=== PATIENT | male | born 1990 | race Caucasian/White ===

== ENCOUNTER 2021-10-25 10:26 | Inpatient (IN) | payer MEDICAID, SELFPAY ==
[2021-10-25 10:33] VITALS: BMI 20.7
[2021-10-25 11:05] LABS: Basophils % 0.7 %; Eosinophils # 0.1 10^3/uL (0.0-0.8); Hemoglobin 15.5 g/dL (11.7-16.6); Lymphocytes # 0.8 10^3/uL (0.8-4.8); Lymphocytes % 12.9 %; Mean Corpuscular HGB Conc 33.7 g/dL (30.0-36.0); Mean Corpuscular Hemoglobin 31.6 pg (28.0-34.0); Mean Corpuscular Volume 93.9 fl (80-94); Mean Platelet Volume 9.4 fL (7.4-10.4); Monocytes # 0.8 10^3/uL (0.2-0.9); Monocytes % 13.2 %; Neutrophils # 4.36 10^3/uL (1.8-7.7); Nucleated Red Blood Cells % 0 %; Platelet Count 206 10^3/cmm (130-400); Red Cell Distribution Width 13.2 % (12.1-15.1); White Blood Count 6.1 10^3/uL (4.0-10.0)
--- NOTE | 2021-10-25 11:25 | W.ED.PSYCHS ---
HPI - Psych General: Chief Complaint: Psychiatric Symptoms Stated Complaint: MHE Time Seen by Provider: 10/25/21 10:49 Source: patient Mode of arrival: ambulatory Limitations: no limitations History of Present Illness: 31-year-old male presents emergency room with suicidal ideation. He states he had suicidal thoughts for the last several days or even weeks. Although the patient does not express a formulated plan at all. He has a custody issue with the mother of his children at his gotten up to this point. He has not been able to see his kids for some time. No previous mental health history is not on any medications no previous hospitalizations for suicidal ideations. MD complaint: suicidal ideation and feels depressed Onset (ago): day(s) Duration: constant Relieving factors: none Exacerbating factors: other (Social situation) Context: significant life stressor Associated psychiatric symptoms: depression and suicidal ideation Associated symptoms: Reports depression and suicidal ideation; Deny auditory hallucinations, visual hallucinations, delusions, homicidal ideation or racing thoughts Treatments prior to arrival: none If self harm: admits thoughts of self harm Review of Systems Const: Denies: fever(s), chills, body aches, change in appetite, fatigue or malaise ENMT: Denies: throat pain, ear or mastoid pain, nasal discharge or nasal congestion Card: Denies: chest pain, edema, dyspnea on exertion or orthopnea Resp: Denies: dyspnea, productive cough or non-productive cough GI: Denies: abdominal pain, nausea, vomiting, hematemesis, coffee ground emesis, diarrhea, constipation, bloating, hematochezia or melena : Denies: flank pain, difficulty urinating, dysuria, urinary frequency or urinary urgency Skin/Breast: Denies: rash or pruritus Psych: Reports: depression and suicidal ideation; Denies: visual hallucinations, auditory hallucinations or homicidal ideation [facility] PFSH: Medical History No significant past medical history Surgical History No significant past surgical history Physical Exam Const: GENERAL APPEARANCE: cooperative and comfortable ORIENTATION/CONSCIOUSNESS: Yes awake, Yes oriented to person, Yes oriented to place and Yes oriented to time HENMT: COMMON NORMALS: normocephalic, atraumatic and hearing grossly normal bilaterally HEAD & SCALP: normocephalic and atraumatic Neck/C-Spine: COMMON NORMALS: no JVD Resp: COMMON NORMALS: normal respiratory effort, No retractions, No use of accessory muscles and clear to auscultation bilaterally AUSCULTATION: clear to auscultation bilaterally Cardio: COMMON NORMALS: no JVD, regular rate, regular rhythm and No murmurs present (Cardio) RATE: regular rate RHYTHM: regular rhythm GI: COMMON NORMALS: Soft to palpation and No hepatosplenomegaly present AUSCULTATION: Yes normoactive bowel sounds PALPATION: Yes Soft to palpation, No Tenderness to palpation present (GI), No Guarding due to palpation present (GI) and Yes No hepatosplenomegaly present Extremity: COMMON NORMALS: normal to inspection, capillary refill normal, no clubbing, cyanosis or edema, no calf tenderness and no pedal edema Neuro: SENSORIUM/ORIENTATION: Yes oriented to person, Yes oriented to place and Yes oriented to time Psych: THOUGHT CONTENT: No delusions Skin: COMMON NORMALS: no rashes or lesions noted GENERAL SKIN EXAM: no rashes or lesions noted Course Vital Signs: Vital signs: Vital Signs Temperature 98.3 F 10/29/21 10:56 Pulse Rate 83 10/29/21 10:56 Respiratory Rate 16 10/29/21 10:56 Blood Pressure 104/70 10/29/21 10:56 Pulse Oximetry 99 10/29/21 10:56 [facility] - Psych Medical Decision Making Patient has a very flat affect and concerned about his dwelling for the last several days if not more on suicidal ideation. He is not able to express a plan became very angry when we advised him that he would have to be admitted because of the suicidal ideation. We were able to redirect him he was familiar with one of our security guards who was able to calm him down and get him to agree. He does not have any hallucinations. Discussed with psychiatry will admit Medical Records I reviewed the patient's medical records. Lab Data I reviewed the patient's lab results. : 10/25/21 11:00 10/25/21 11:00 Laboratory Results WBC 6.1 10^3/uL (4.0-10.0) 10/25/21 11:00 RBC 4.90 10^6/uL (4.1-5.3) 10/25/21 11:00 Hgb 15.5 g/dL (11.7-16.6) 10/25/21 11:00 Hct 46.0 % (42.0-52.0) 10/25/21 11:00 MCV 93.9 fl (80-94) 10/25/21 11:00 MCH 31.6 pg (28.0-34.0) 10/25/21 11:00 MCHC 33.7 g/dL (30.0-36.0) 10/25/21 11:00 RDW 13.2 % (12.1-15.1) 10/25/21 11:00 Plt Count 206 10^3/cmm (130-400) 10/25/21 11:00 MPV 9.4 fL (7.4-10.4) 10/25/21 11:00 Neut % (Auto) 71.0 % 10/25/21 11:00 Lymph % (Auto) 12.9 % 10/25/21 11:00 [place] % (Auto) 13.2 % 10/25/21 11:00 Eos % (Auto) 2.0 % 10/25/21 11:00 Baso % (Auto) 0.7 % 10/25/21 11:00 Neut # (Auto) 4.36 10^3/uL (1.8-7.7) 10/25/21 11:00 Lymph # (Auto) 0.8 10^3/uL (0.8-4.8) 10/25/21 11:00 [place] # (Auto) 0.8 10^3/uL (0.2-0.9) 10/25/21 11:00 Eos # (Auto) 0.1 10^3/uL (0.0-0.8) 10/25/21 11:00 Baso # (Auto) 0.0 10^3/uL (0.0-0.1) 10/25/21 11:00 Nucleated RBC % (auto) 0 % 10/25/21 11:00 Nucleated RBCs # 0.0 /100WBC 10/25/21 11:00 Sodium 138 mmol/L (136-145) 10/25/21 11:00 Potassium 4.0 mmol/L (3.5-5.1) 10/25/21 11:00 Chloride 102 mmol/L (98-107) 10/25/21 11:00 Carbon Dioxide 28 mmol/L (22-29) 10/25/21 11:00 Anion Gap 12.0 (5-19) 10/25/21 11:00 BUN 10 mg/dL (6-20) 10/25/21 11:00 Creatinine 0.8 mg/dL (0.7-1.2) 10/25/21 11:00 GFR Calculation 113.5 mL/min (90-130) 10/25/21 11:00 Glucose 91 mg/dL (65-115) 10/25/21 11:00 Calculated Osmolality 285 mOsm/kg (285-295) 10/25/21 11:00 Calcium 8.6 mg/dL (8.5-10.5) 10/25/21 11:00 Total Bilirubin 0.7 mg/dL (0.15-1.2) 10/25/21 11:00 AST 21 U/L (0-40) 10/25/21 11:00 ALT 24 U/L (0-41) 10/25/21 11:00 Alkaline Phosphatase 48 IU/L (40-130) 10/25/21 11:00 Total Protein 6.8 g/dL (6.6-8.7) 10/25/21 11:00 Albumin 4.3 g/dL (3.5-5.2) 10/25/21 11:00 Globulin 2.5 g/dL (1.3-4.6) 10/25/21 11:00 Salicylates < 0.3 mg/dL (3-10) L 10/25/21 11:00 Acetaminophen < 5.0 ug/mL (10-30) L 10/25/21 11:00 Discharge Plan Discharge Patient Disposition: Admitted As Inpatient Admit Provider: Rogerio Quinn Clinical Impression: Suicidal ideation, Major depressive disorder, recurrent, severe w/o psychotic behavior Condition: Stable Discharge Orders: Discharge Order (Routine); Ordered 10/29/21 Ordered By: Justyn Stone Discharge Diet: Regular Discharge Activity: Resume usual activity Coding Level of Care Code ED Hand Cementer for Chg Fwd Exam Comprehensive
[2021-10-25 11:33] LABS: Alanine Aminotransferase 24 U/L (0-41); Albumin Level 4.3 g/dL (3.5-5.2); Alkaline Phosphatase 48 IU/L (40-130); Aspartate Amino Transferase 21 U/L (0-40); Blood Urea Nitrogen 10 mg/dL (6-20); Calcium 8.6 mg/dL (8.5-10.5); Carbon Dioxide 28 mmol/L (22-29); Chloride 102 mmol/L (98-107); Globulin 2.5 g/dL (1.3-4.6); Glomerular Filtration Rate 113.5 mL/min (90-130); Glucose 91 mg/dL (65-115); Osmolality Calculated 285 mOsm/kg (285-295); Sodium 138 mmol/L (136-145); Total Bilirubin 0.7 mg/dL (0.15-1.2); Total Protein 6.8 g/dL (6.6-8.7)
[2021-10-25 11:39] LABS: Acetaminophen < 5.0 ug/mL (10-30); Salicylate < 0.3 mg/dL (3-10)
[2021-10-25 13:09] VITALS: BP 116/79; PULSE 70; O2SAT 96
[2021-10-25] MEDS: LORazepam 2 mg Tablet PO (13:11)
[2021-10-25 14:25] VITALS: BP 110/70; PULSE 86; RESP 16; TEMP 36.9; O2SAT 97
--- NOTE | 2021-10-25 15:01 | PC.ADMIT ---
[address] Admission Note: The patient,El Dove,31 y/o, was given written information regarding hospital policies, unit procedures and contact persons. Patient's smoking status: . Vital Signs - 8 hr 10/25/21 13:09 10/25/21 14:25 Temperature 98.4 F Pulse Rate 70 86 Respiratory Rate 16 Blood Pressure 116/79 110/70 Pulse Oximetry 96 97 PT ADMITTED FROM ER AT 1426 VIA WHEELCHAIR AND SECURITY STAFF. PT IS ON A 96 HOUR HOLD THAT ENDS 10/29/21 AT 1426. PT A&O TIMES 3. PT STATES HE IS HERE DUE TO HAVING BAD THOUGHTS ABOUT WANTING TO HURT MYSELF OR OTHERS. PT TAKES NO HOME MEDICATIONS. HAS NO KNOWN DRUG ALLERGIES. PT REPORTS HE DID SEE A THERAPIST A FEW TIMES WHILE TRYING TO GET HIS SON OUT OUT [facility] CUSTODY. PT HAS HAD NO PSYCH ADMISSIONS. STATES HE DOES NOT USE DRUGS BUT DRINKS OCCASIONALLY. PT DOES REPORT HIS LAST DRINK WAS A FEW DAYS AGO AND HE SMOKED WEED THEN WELL. PT ORIENTATED TO UNIT. ALL QUESTIONS ANSWERED AND SUPPORT VOICED.
--- NOTE | 2021-10-25 17:28 | W.PM.NPUH&PS ---
Providers/Chief Complaint Admitting Physician: Rogerio Quinn MD Primary Care Provider: Rodolfo Glasgow MD Chief Complaint: suicidal ideation HPI NPU History of Present Illness El Dove is a 31 year old male admitted from ER to NPU with suicidal ideation described for weeks with increasing intensity. He reports that he has been depressed than a month. He reports sleep continuity disruption along with difficulties falling asleep. He reports that he has had recurring thoughts of being but did not elicit any particular plan. He reports that he has been preoccupied by thoughts of dying. He reports that this has been worse due to his inability to see his 4 children for the last several months because of an ongoing custody issue with his children's mother. He reports having extreme financial distress and states that he has been overwhelmed by having to began this fermin with his children's mother over being able to visit. He reports that he has felt exhausted all of the time. He reports diminished concentration. He did not endorse any manic symptoms. Nor did he endorse any psychotic symptoms. He reports no prior history of suicide attempts. He does report a past history of a depressed episode that resolved on its own in the distant past. He reportedly reports a motivation and anergia. He reports that his depression has been worse as the day progresses. He reports he wished to get some help before he did something unfortunate. Past psychiatric History: He has reported a past history of a trial of Prozac for depression but could not specify how long ago he had taken it. He reports no previous history of inpatient hospitalization. He reports occasional use of alcohol and marijuana but reports no significant history of excess use of either substance. There is no history of cocaine use methamphetamine use or opiate use reported. Medical history: none Surgical Hx: none Allergies: nkda Social Hx: He was raised in [place] by both his biological parents. He reports having graduated from high school here and has worked in construction. He reports that he has 5 biological children and one of his children lives with him along with his sister. He did not endorse any history of sexual physical or emotional abuse. He reports a history of financial stressors. He reports that he has no contact with his biological parents currently. Developmental history is considered normal and noncontributory. He has no legal history. Meds NPU Home Medications Medication Instructions Recorded Confirmed Last Taken Type No Known Home Medications 10/25/21 10/25/21 Unknown History Allergies Allergy/AdvReac Type Severity Reaction Status Date / Time No Known Allergies Allergy Verified 10/25/21 13:18 PFSH NPU PFSH: Medical History (Updated 10/25/21 @ 19:37 by Rogerio Quinn MD) No significant past medical history Surgical History (Updated 10/25/21 @ 11:27 by Juan Wilkins DO) No significant past surgical history Mental Status Exam MSE Comments: He is a casually dressed white male who appeared his stated age. He Significant psychomotor retardation and at times appeared almost tearful on interview. His mood was described as depressed. His affect was restricted in range and mood congruent there was none there is no evidence of any abnormal involuntary motor movements tics tremors or tremors appreciated. His thought process was linear and logical and goal-directed his thought content endorsed suicidal ideation with no homicidal ideation he was alert and oriented to person place and time is recent and remote memory appear grossly intact his insight appeared limited at this time his judgment was poor there is no clear evidence of any delusional thinking denies any auditory or visual loose Nations. Vitals/I&O/Wt Last Vital Signs Temp 98.4 F 10/25/21 14:25 Pulse 86 10/25/21 14:25 Resp 16 10/25/21 14:25 BP 110/70 10/25/21 14:25 Pulse Ox 97 10/25/21 14:25 Weight last 48 hrs Weight 63.503 kg Data NPU : 10/25/21 11:00 10/25/21 11:00 A&P Assessment and plan (1) Major depressive disorder, recurrent, severe w/o psychotic behavior: Status: Acute (2) Suicidal ideation: Status: Acute Plan Who is a 31-year-old white male with no previous history history of inpatient hospitalizations who arrives to the MPU today with active suicidal ideation and severe depression over the last month. Acute precipitants include increased stress with lack of contact with his 4 children over the last month. Plan #1 discussed with patient that a trial of a different antidepressant and will initiate Wellbutrin XL 150 mg in the morning to therapeutic observation 15-minute checks #3 engage patient in individual milieu and group therapy Involuntary Hold Information 96 Hour Hold: 96 Hour Involuntary Admission: Yes 96 Hour Hold Ending Date: 10/29/21 96 Hour Hold Ending Time: 14:26 Attestations NPU Medical Necessity Statement*: Medical necessity statement: Patient will continue to require inpatient hospitalization with patient expected to be here for at least 2 midnights with expected length of stay 3 to 7 days. Coding Level of Care Code New Pt Acute Telegraph Operator for Debbieg Fwd Patient Type New History Problem Focused Exam Problem Focused Medical Decision Making Straight Forward Diagnoses Major depressive disorder, recurrent, severe w/o psychotic behavior F33.2 Suicidal ideation R45.851
[2021-10-25 20:17] VITALS: BP 109/71; PULSE 83; RESP 18; O2SAT 98
[2021-10-25] MEDS: trazodone 50 mg Tablet PO (21:03)
[2021-10-26 06:00] VITALS: BP 91/57; PULSE 64; RESP 16; TEMP 36.6; O2SAT 97
[2021-10-26] MEDS: buPROPion XL (24 HR) 150 mg Tablet PO (09:24)
--- NOTE | 2021-10-26 11:07 | PC.NURSE ---
IN BED RESTING. DENIES SI/HI AND AVH AT THIS TIME. PT APPEARS DEPRESSED AND MILDLY ANXIOUS BUT DECLINES ANXIETY MEDS AT THIS TIME. SUPPORT VOCIED.
[2021-10-26 14:00] VITALS: BP 98/68; PULSE 81; RESP 20; TEMP 36.9; O2SAT 98
--- NOTE | 2021-10-26 14:23 | P.NPUPN_ITS ---
Subjective NPU Subjective: El is a 31-year-old white male with no previous psychiatric hospitalization admitted with severe depression and intense suicidal thoughts with no active plan. The patient had been compliant on the milieu. He had reported some difficulties with falling asleep last night. He reported no side effects from his first dose of Wellbutrin XL this morning. He reports that he continues to be stressed and is repeatedly thinking about his children who he has not seen in months. The patient denies any feelings of worthlessness but does report some feelings of hopelessness. He reports diminished appetite and continues to report some decreased energy and struggles with getting out of bed in the morning. Mental Status Exam MSE Comments: He is a casually dressed white male who appeared his stated age.? He continued to have considerable psychomotor retardation. His mood was described as depressed.? His affect remained flat. There was no evidence of any abnormal involuntary motor movements tics , or tremors appreciated.? His thought process was linear and logical with repeated themes of loss of contact with children. His thought content endorsed suicidal ideation with no homicidal ideation. he was alert and oriented to person place and time. His recent and remote memory appear grossly intact. His insight appeared limited at this time. His judgment was poor. There is no clear evidence of any delusional thinking. He denies any auditory or visual hallucinations. Vitals/I&O/Wt Last Vital Signs Temp 98.5 F 10/26/21 14:00 Pulse 81 10/26/21 14:00 Resp 20 H 10/26/21 14:00 BP 98/68 10/26/21 14:00 Pulse Ox 98 10/26/21 14:00 Weight last 48 hrs Weight 63.503 kg Data NPU : 10/25/21 11:00 10/25/21 11:00 A&P Assessment and plan (1) Suicidal ideation: Status: Acute (2) Major depressive disorder, recurrent, severe w/o psychotic behavior: Status: Acute Plan Who is a 31-year-old white male with no previous history of inpatient hosp italizations who arrives to the NPU with active suicidal ideation and severe depression over the last month.? Acute precipitants include increased stress with lack of contact with his 4 children over the last month. 1) continue wellbutrin xl 150mg with plan for increase in next 2-3 days 2) individual/milieu and group therapy 3) To-15 minute checks. Involuntary Hold Information 96 Hour Hold: 96 Hour Involuntary Admission: Yes 96 Hour Hold Ending Date: 10/29/21 96 Hour Hold Ending Time: 14:26 Attestations NPU Medical Necessity Statement*: Medical necessity statement: Patient will continue to require inpatient hospitalization with patient expected to be here for at least 2 midnights with expected length of stay 3 to 7 days. Coding Level of Care Code Established Pt Acute Client Technical Support Associate for Ruba Winkler Patient Type Established History Problem Focused Exam Problem Focused Medical Decision Making Straight Forward Diagnoses Suicidal ideation R45.851 Major depressive disorder, recurrent, severe w/o psychotic behavior F33.2
[2021-10-26] MEDS: hyDROXYzine 25 mg Capsule 50 MG PO (18:33)
[2021-10-26 19:52] VITALS: BP 119/80; PULSE 79; RESP 16; TEMP 36.9; O2SAT 94
[2021-10-26] MEDS: trazodone 50 mg Tablet PO (20:49)
--- NOTE | 2021-10-26 22:24 | PC.NURSE ---
PRN MED PT GIVEN 50MG TRAZADONE FOR INSOMNIA, WILL CONTINUE TO MONITOR.
[2021-10-27 06:00] VITALS: BP 107/72; PULSE 81; RESP 16; TEMP 36.8; O2SAT 98
[2021-10-27] MEDS: buPROPion XL (24 HR) 150 mg Tablet PO (08:56)
--- NOTE | 2021-10-27 12:22 | P.NPUPN_ITS ---
Subjective NPU Subjective: El is a 31-year-old white male with no previous psychiatric hospitalization admitted with severe depression and intense suicidal thoughts with no active plan.? The patient had been compliant on the milieu.?He reports feeling more motivated to get better. No side effects from medication. He reports no feelings of worthlessness. He reports some improved energy but still complains of feeling tired during the day. He reports no active thoughts of suicide today. ? Mental Status Exam MSE Comments: He is a casually dressed white male who appeared his stated age.? Psychomotor retardation was prominent. ? His mood was described as depressed.? His affect remained flat. ? There was? no evidence of any abnormal involuntary motor movements tics , or tremors appreciated.? His thought process was linear and logical with repeated themes of loss of contact with children.? His thought content endorsed no suicidal ideation today with no homicidal ideation. ? he was alert and oriented to person place and time.? His recent and remote memory appear grossly intact.? His insight appeared guarded at this time. ? His judgment was poor. ? There is no clear evidence of any delusional thinking.? He? denies any auditory or visual hallucinations.? Vitals/I&O/Wt Last Vital Signs Temp 98.7 F 10/27/21 14:00 Pulse 68 10/27/21 14:00 Resp 18 10/27/21 14:00 BP 112/72 10/27/21 14:00 Pulse Ox 99 10/27/21 14:00 Data NPU : 10/25/21 11:00 10/25/21 11:00 A&P Assessment and plan (1) Suicidal ideation: Status: Acute (2) Major depressive disorder, recurrent, severe w/o psychotic behavior: Status: Acute Plan Who is a 31-year-old white male with no previous? history of inpatient hospitalizations who arrives to the NPU with active suicidal ideation and severe depression over the last month.? Acute precipitants include increased stress with lack of contact with his 4 children over the last month. ? 1) continue wellbutrin xl 150mg with plan for increase to 300mg in am. ? 2) individual/milieu and group therapy ? 3) To-15 minute checks.? ? Involuntary Hold Information 96 Hour Hold: 96 Hour Involuntary Admission: Yes 96 Hour Hold Ending Date: 10/29/21 96 Hour Hold Ending Time: 14:26 Attestations NPU Medical Necessity Statement*: Medical necessity statement: Patient will c ontinue to require inpatient hospitalization with patient expected to be here for at least 2 midnights with expected length of stay 3 to 5 days. Coding Level of Care Code Established Pt Acute Environmental Health Safety Manager for Ruba Winkler Patient Type Established Medical Decision Making Straight Forward Diagnoses Suicidal ideation R45.851 Major depressive disorder, recurrent, severe w/o psychotic behavior F33.2
[2021-10-27 14:00] VITALS: BP 112/72; PULSE 68; RESP 18; TEMP 37.1; O2SAT 99
[2021-10-27 19:14] VITALS: BP 114/74; PULSE 88; RESP 20; TEMP 37; O2SAT 98
--- NOTE | 2021-10-27 20:24 | PC.NURSE ---
UP IN BED AROUSES TO VOICE. C/O BACK PAIN 11/24. NEW ORDER RECEIVED FOR MOTRIN 600 MG PO Q HOURS PAIN. PTS MOOD AND AFFECT IS MUCH BRIGHTER THIS EVENING. PT STATES HE IS FEELING MUCH BETTER AND IS FEELING LESS DEPRESSED. DENIES SI/HI AND AVH AT THIS TIME. PT STATES HE IS LOOKING FORWARD TO GETTING OUT AND SEEING HIS SON AGAIN. ALL QUESTIONS ANSWERED AND SUPPORT WAS VOICED.
[2021-10-27] MEDS: ibuprofen 600 mg Tablet PO (20:31)
[2021-10-28 05:42] VITALS: BP 114/74; PULSE 88; RESP 20; TEMP 37; O2SAT 98
[2021-10-28 05:56] VITALS: BP 114/76; PULSE 68; RESP 16; TEMP 36.6; O2SAT 99
[2021-10-28] MEDS: ibuprofen 600 mg Tablet PO (06:02)
[2021-10-28] MEDS: buPROPion XL (24 HR) 150 mg Tablet 300 MG PO (08:26)
[2021-10-28 13:44] VITALS: BP 139/86; PULSE 93; RESP 17; TEMP 36.6; O2SAT 95
--- NOTE | 2021-10-28 17:01 | P.NPUPN_ITS ---
Subjective NPU Subjective: Patient presents today reporting that things are going better. He reports that things started here with significant stressors over his children that do not live with him and his estrangement from them and having to move back to the [place] area and live with his sister. He reports it was all overwhelming and he needed some help which he has received. He reports that he is tolerating the Wellbutrin XL well and is denying any current side effects or concerns. He reports that he is eating and sleeping well and we discussed the plan for discharge in the morning. Medications: Medication Review Details: This is a slender white male in hospital scrubs with appropriate grooming and eye contact. No abnormal movements. Cooperative with exam in no acute distress. Speech was normal rate and volume. Mood described as getting better, affect euthymic. Thought process organized. Thought content: Patient denied suicidal or homicidal ideation, there were no delusions reported or noted, he denied any auditory or visual hallucinations. Attention and concentration were intact and memory appeared reliable but none were formally tested. He is alert and oriented x3. Insight improving, judgment improving, impulse control limited but improving. Vitals/I&O/Wt Last Vital Signs Temp 98.4 F 10/28/21 20:02 Pulse 85 10/28/21 20:02 Resp 16 10/28/21 20:02 BP 106/71 10/28/21 20:02 Pulse Ox 97 10/28/21 20:02 Data NPU : 10/25/21 11:00 10/25/21 11:00 A&P Assessment and plan (1) Suicidal ideation: Status: Acute (2) Major depressive disorder, recurrent, severe w/o psychotic behavior: Status: Acute Plan This is a 31-year-old white male with no previous? history of inpatient hospitalizations who arrives to the NPU with active suicidal ideation and severe depression over the last month.? Acute precipitants include increased stress with lack of contact with his 4 children over the last month. ? 1) continue current medication. Wellbutrin XL started and now increased to 300 mg p.o. every morning. ? 2) encourage individual, group and milieu therapies. ? 3) continue every 15 minute checks for safety. Involuntary Hold Information 96 Hour Hold: 96 Hour Involuntary Admission: Yes 96 Hour Hold Ending Date: 10/29/21 96 Hour Hold Ending Time: 14:26 Attestations NPU Medical Necessity Statement*: Inpatient hospitalization is medically necessary and the clinically appropriate intervention at this time. We will monitor medication to make changes as indicated. Likely length of stay 1-2 days. Coding Level of Care Code Acute Critical Care Physician Assistant for [facility] Fwd Diagnoses Suicidal ideation R45.851 Major depressive disorder, recurrent, severe w/o psychotic behavior F33.2
[2021-10-28 20:02] VITALS: BP 106/71; PULSE 85; RESP 16; TEMP 36.9; O2SAT 97
[2021-10-28] MEDS: trazodone 50 mg Tablet PO (20:59)
[2021-10-29 06:00] VITALS: BP 104/70; PULSE 83; RESP 16; TEMP 36.8; O2SAT 99
[2021-10-29] MEDS: buPROPion XL (24 HR) 150 mg Tablet 300 MG PO (07:55)
[2021-10-29] MEDS: acetaminophen 325 mg Tablet 650 MG PO (07:56)
--- NOTE | 2021-10-29 10:40 | W.PM.NPUDCS ---
Diagnoses at Discharge Discharge Diagnosis (1) Suicidal ideation: Status: Resolved (2) Major depressive disorder, recurrent, severe w/o psychotic behavior: Status: Acute Reason for Visit Reason for Visit: suicidal ideation Brief History: History of Present Illness El Dove is a 31 year old male admitted from ER to [facility] with suicidal ideation described for weeks with increasing intensity.? He reports that he has been depressed than a month.? He reports sleep continuity disruption along with difficulties falling asleep.? He reports that he has had recurring thoughts of being but did not elicit any particular plan.? He reports that he has been preoccupied by thoughts of dying.? He reports that this has been worse due to his inability to see his 4 children for the last several months because of an ongoing custody issue with his children's mother.? He reports having extreme financial distress and states that he has been overwhelmed by having to began this fermin with his children's mother over being able to visit.? He reports that he has felt exhausted all of the time.? He reports diminished concentration.? He did not endorse any manic symptoms.? Nor did he endorse any psychotic symptoms.? He reports no prior history of suicide attempts.? He does report a past history of a depressed episode that resolved on its own in the distant past.? He reportedly reports a motivation and anergia.? He reports that his depression has been worse as the day progresses.? He reports he wished to get some help before he did something unfortunate. Past psychiatric History: He has reported a past history of a trial of Prozac for depression but could not specify how long ago he had taken it.? He reports no previous history of inpatient hospitalization.? He reports occasional use of alcohol and marijuana but reports no significant history of excess use of either substance.? There is no history of cocaine use methamphetamine use or opiate use reported. Medical history: none Surgical Hx: none Allergies: nkda Social Hx: He was raised in [place] by both his biological parents.? He reports having graduated from high school here and has worked in construction.? He reports that he has 5 biological children and one of his children lives with him along with his sister.? He did not endorse any history of sexual physical or emotional abuse.? He reports a history of financial stressors.? He reports that he has no contact with his biological parents currently.? Developmental history is considered normal and noncontributory.? He has no legal history. Hospital Course Hospital Course He quickly acclimated to the individual, group milieu therapies provided. He was monitored for lethality given the 96-hour hold he arrived on. He was started on Wellbutrin XL which was titrated to 300 mg p.o. every morning with marked improvement. But he would contract for safety outside the hospital prior to discharge. During the hospitalization, patient had routine laboratory studies which were within normal limits except for few outliers. Additionally there was a general medical evaluation which was also within normal limits and revealed no new acute processes. Discharge Summary: At the time of discharge, he denied psychosis or lethality. Mood and anxiety were well managed. Patient endorsed a plan to avoid all drugs of abuse and follow-up with the aftercare recommendations of the treatment team. Patient was evaluated and deemed to be absent credible lethality, and had achieved the maximum benefit from an inpatient hospitalization, so was discharged. Involuntary Hold Information 96 Hour Hold: 96 Hour Involuntary Admission: Yes 96 Hour Hold Ending Date: 10/29/21 96 Hour Hold Ending Time: 14:26 Mental Status Exam MSE Comments: ?This is a slender white male in hospital scrubs with adequate grooming and eye contact. No abnormal movements. Cooperative with exam in no acute distress. Speech was normal rate and volume. Mood described as pretty good, congruent. Thought process organized, thought content: patient denies suicidal or homicidal ideation, there were no delusions reported or noted, he denied any auditory or visual hallucinations. Attention and concentration were intact and memory appeared reliable but none were formally tested. He?s alert and oriented times three. Insight and judgment appeared fair and impulse control appeared fair Discharge Data Studies Completed and Pending: Laboratory Results WBC 6.1 10^3/uL (4.0- 10.0) 10/25/21 11:00 RBC 4.90 10^6/uL (4.1 -5.3) 10/25/21 11:00 Hgb 15.5 g/dL (11.7-1 6.6) 10/25/21 11:00 Hct 46.0 % (42.0-52.0 ) 10/25/21 11:00 MCV 93.9 fl (80-94) 10/25/21 11:00 MCH 31.6 pg (28.0-34. 0) 10/25/21 11:00 MCHC 33.7 g/dL (30.0-3 6.0) 10/25/21 11:00 RDW 13.2 % (12.1-15.1 ) 10/25/21 11:00 Plt Count 206 10^3/cmm (130 -400) 10/25/21 11:00 MPV 9.4 fL (7.4-10.4) 10/25/21 11:00 Neut % (Auto) 71.0 % 10/25/21 11:00 Lymph % (Auto) 12.9 % 10/25/21 11:00 Duval % (Auto) 13.2 % 10/25/21 11:00 Eos % (Auto) 2.0 % 10/25/21 11:00 Baso % (Auto) 0.7 % 10/25/21 11:00 Neut # (Auto) 4.36 10^3/uL (1.8 -7.7) 10/25/21 11:00 Lymph # (Auto) 0.8 10^3/uL (0.8- 4.8) 10/25/21 11:00 Duval # (Auto) 0.8 10^3/uL (0.2- 0.9) 10/25/21 11:00 Eos # (Auto) 0.1 10^3/uL (0.0- 0.8) 10/25/21 11:00 Baso # (Auto) 0.0 10^3/uL (0.0- 0.1) 10/25/21 11:00 Nucleated RBC % (a uto) 0 % 10/25/21 11:00 Nucleated RBCs # 0.0 /100WBC 10/25/21 11:00 Sodium 138 mmol/L (136-1 45) 10/25/21 11:00 Potassium 4.0 mmol/L (3.5-5 .1) 10/25/21 11:00 Chloride 102 mmol/L (98-10 7) 10/25/21 11:00 Carbon Dioxide 28 mmol/L (22-29) 10/25/21 11:00 Anion Gap 12.0 (5-19) 10/25/21 11:00 BUN 10 mg/dL (6-20) 10/25/21 11:00 Creatinine 0.8 mg/dL (0.7-1. 2) 10/25/21 11:00 GFR Calculation 113.5 mL/min (90- 130) 10/25/21 11:00 Glucose 91 mg/dL (65-115) 10/25/21 11:00 Calculated Osmolal ity 285 mOsm/kg (285- 295) 10/25/21 11:00 Calcium 8.6 mg/dL (8.5-10 .5) 10/25/21 11:00 Total Bilirubin 0.7 mg/dL (0.15-1 .2) 10/25/21 11:00 AST 21 U/L (0-40) 10/25/21 11:00 ALT 24 U/L (0-41) 10/25/21 11:00 Alkaline Phosphata se 48 IU/L (40-130) 10/25/21 11:00 Total Protein 6.8 g/dL (6.6-8.7 ) 10/25/21 11:00 Albumin 4.3 g/dL (3.5-5.2 ) 10/25/21 11:00 Globulin 2.5 g/dL (1.3-4.6 ) 10/25/21 11:00 Salicylates < 0.3 mg/dL (3-10 ) L 10/25/21 11:00 Acetaminophen < 5.0 ug/mL (10-3 0) L 10/25/21 11:00 Vitals: Last Vital Signs Temp 98.3 F 10/29/21 06:00 Pulse 83 10/29/21 06:00 Resp 16 10/29/21 06:00 BP 104/70 10/29/21 06:00 Pulse Ox 99 10/29/21 06:00 Discharge Plan Discharge Patient Disposition: Home Condition: Stable Prescriptions: New trazodone 50 mg Tablet 50 mg PO BEDTIME PRN (Reason: Insomnia) 30 Days Qty: 30 1RF bupropion HCl 150 mg Tablet Extended Release 24 Hr 300 mg PO DAILY 30 Days Qty: 30 1RF No Action No Known Home Medications 0RF Discharge Orders: Discharge Order (Routine); Ordered 10/29/21 Ordered By: Justyn Stone Referrals: [facility] [Outside] - 11/05/21 7:45 am (Initial assessment with Jen) Rodolfo Glasgow MD [Primary Care Provider] - Discharge Diet: Regular Discharge Activity: Resume usual activity Patient Instructions: Bupropion (By mouth) (Zyban, Wellbutrin XL, Wellbutrin SR, Wellbutrin), Trazodone (By mouth) (Desyrel, Desyrel Dividose, Oleptro, Trazamine), Depression (ED), Opioid Safety Discharge Attestations [facility] Time Spent in Discharge Care*: less than 30 min Specific Discharge Activities: Specific discharge activities: educating patient, discussing with case management social worker/social workers/dc planners, documenting/other paperwork and evaluating patient/reviewing data Coding Level of Care Code Acute [facility] [place] note Diagnoses Suicidal ideation R45.851 Major depressive disorder, recurrent, severe w/o psychotic behavior F33.2
[2021-10-29 10:56] VITALS: BP 104/70; PULSE 83; RESP 16; TEMP 36.8; O2SAT 99
== END 2021-10-29 11:02 | disposition home or self-care (01) | DRG 885 ==
LOC: ER 11:28 → NP 15:03
PROVIDERS: Admitting Provider Psychiatry & Neurology Psychiatry; Emergency Provider Family Medicine; PCP Family Medicine; Visit Provider Psychiatry & Neurology Psychiatry
DX: F33.2 Major depressive disorder, recurrent severe without psychotic features (principal); R45.851 Suicidal ideations; G47.00 Insomnia, unspecified; Z65.3 Problems related to other legal circumstances
CPT/HCPCS: 80053; 80307; 85025; 97150; 97165; 99285